=== PATIENT | female | born 1950 | race Caucasian/White ===

== ENCOUNTER → 2016-07-14 | Outpatient (CLI) | payer MEDICARE ==
[2016-07-14 13:52] LABS: ALBUMIN 3.8 GM/DL (3.2-5.2); ALBUMIN/GLOBULIN RATIO 1.23 (1.00-1.93); BILIRUBIN,TOTAL 0.5 MG/DL (0.2-1.0); CALCIUM LEVEL 9.1 MG/DL (8.8-10.2); GLOMERULAR FILTRATION RATE 58.9 (>45); POTASSIUM SERUM 4.5 MEQ/L (3.5-5.1); TOTAL PROTEIN 6.9 GM/DL (6.4-8.2)
== END ==
LOC: M WUC 10:13
PROVIDERS: ATTEND Nurse Practitioner Adult Health
DX: E55.9 Vitamin D deficiency, unspecified (principal); E78.5 Hyperlipidemia, unspecified; R73.02 Impaired glucose tolerance (oral)

== ENCOUNTER → 2016-07-15 | Outpatient (CLI) | payer MEDICARE ==
--- NOTE | 2016-07-15 12:12 | REPMRS ---
Patient History The patient states she had a clinical breast exam in 03/2017. Patient is postmenopausal. No known family history of cancer. Benign stereotatic breast biopsy of the right breast, 2009. Taking estrogen for 3 years. Digital Woman Screen Mammo: July 15, 2016 - Exam #: [id number] Bilateral CC and MLO view(s) were taken. Technologist: Ebony Mata, Technologist Prior study comparison: June 06, 2015, digital woman screen mammo performed at [facility]. June 01, 2014, digital woman screen mammo performed at [facility]. FINDINGS: There are scattered fibroglandular densities. There has been no change in the appearance of the mammogram from the prior studies. There is a mild amount of residual fibroglandular tissue which is fairly symmetric. There is no interval development of dominant mass, architectural distortion, or clustered microcalcification suggestive of malignancy. ASSESSMENT: BI-RADS/ACR category 1 mammogram. Negative. Recommendation Routine screening mammogram in 1 year (for women over age 40). This mammogram was interpreted with the aid of an FDA-approved computer-aided dectection system. Electronically Signed By: Usman Lowry MD 07/15/16 [id number]
== END ==
LOC: M WHC 11:32
PROVIDERS: ATTEND Nurse Practitioner Adult Health
DX: Z12.31 Encounter for screening mammogram for malignant neoplasm of breast (principal)

== ENCOUNTER → 2016-10-16 | Outpatient (CLI) | payer MEDICARE ==
[2016-10-16 11:43] LABS: MEAN CORPUSCULAR HGB CONC 33.8 g/dl (32.0-36.5); MEAN CORPUSCULAR VOLUME 82.7 fl (80.0-96.0); RED CELL DISTRIBUTION WIDTH 13.8 % (11.5-14.5); WHITE BLOOD COUNT 5.3 K/mm3 (4.0-10.0)
== END ==
LOC: M WUC 09:43
PROVIDERS: ATTEND Nurse Practitioner Adult Health
DX: R73.01 Impaired fasting glucose (principal); R53.83 Other fatigue

== ENCOUNTER → 2017-03-16 | Outpatient (CLI) | payer MEDICARE ==
[2017-03-16 18:58] LABS: MEAN CORPUSCULAR HEMOGLOBIN 25.3 pg (27.0-33.0); MEAN CORPUSCULAR HGB CONC 31.3 g/dl (32.0-36.5); MEAN CORPUSCULAR VOLUME 80.7 fl (80.0-96.0); PLATELET COUNT, AUTOMATED 300 10^3/uL (150-450); RED CELL DISTRIBUTION WIDTH 15.5 % (11.5-14.5); WHITE BLOOD COUNT 6.3 10^3/uL (4.0-10.0)
[2017-03-16 20:29] LABS: ALBUMIN 3.8 GM/DL (3.2-5.2); ALBUMIN/GLOBULIN RATIO 1.23 (1.00-1.93); BILIRUBIN,TOTAL 0.3 MG/DL (0.2-1.0); CALCIUM LEVEL 9.4 MG/DL (8.8-10.2); GLOMERULAR FILTRATION RATE 58.7 (>45); POTASSIUM SERUM 4.7 MEQ/L (3.5-5.1); TOTAL PROTEIN 6.9 GM/DL (6.4-8.2)
== END ==
LOC: M WUC 12:49
PROVIDERS: ATTEND Internal Medicine Gastroenterology
DX: R74.8 Abnormal levels of other serum enzymes (principal); R10.13 Epigastric pain; K75.81 Nonalcoholic steatohepatitis (NASH); Z12.11 Encounter for screening for malignant neoplasm of colon; Z79.899 Other long term (current) drug therapy

== ENCOUNTER → 2017-03-25 | Outpatient (CLI) | payer MEDICARE ==
[2017-03-25 17:16] LABS: FREE T4 0.98 NG/DL (0.76-1.46); URIC ACID 6.1 MG/DL (2.6-6.0)
== END ==
LOC: M WUC 14:37
PROVIDERS: ATTEND Nurse Practitioner Adult Health
DX: M25.549 Pain in joints of unspecified hand (principal); R53.83 Other fatigue; M79.89 Other specified soft tissue disorders

== ENCOUNTER → 2017-07-27 | Outpatient (CLI) | payer MEDICARE | LOC: M WUC 13:54 | DX: M21.941 Unspecified acquired deformity of hand, right hand (principal); M21.942 Unspecified acquired deformity of hand, left hand | CPT/HCPCS: 73130 ==

== ENCOUNTER → 2017-10-20 | Outpatient (CLI) | payer MEDICARE ==
[2017-10-20 12:38] LABS: ALBUMIN/GLOBULIN RATIO 1.25 (1.00-1.93); ALKALINE PHOSPHATASE 151 U/L (45-117); ALT/SGPT 30 U/L (12-78); ANION GAP 6 MEQ/L (8-16); AST/SGOT 17 U/L (7-37); BILIRUBIN,TOTAL 0.4 MG/DL (0.2-1.0); BLOOD UREA NITROGEN 12 MG/DL (7-18); CALCIUM LEVEL 9.1 MG/DL (8.8-10.2); CARBON DIOXIDE LEVEL 30 MEQ/L (21-32); CHLORIDE LEVEL 105 MEQ/L (98-107); CREATININE FOR GFR 0.96 MG/DL (0.55-1.30); GLOMERULAR FILTRATION RATE > 60.0 (>45); GLUCOSE, FASTING 105 MG/DL (70-100); POTASSIUM SERUM 4.9 MEQ/L (3.5-5.1); SODIUM LEVEL 141 MEQ/L (136-145); TOTAL PROTEIN 7.2 GM/DL (6.4-8.2)
[2017-10-20 12:49] LABS: MALB URINE SIEMENS 5.1 MG/L; MAU/CREAT RATIO 4.1 MCG/MG (0.0-30.0)
[2017-10-20 12:58] LABS: ESTIMATED AVERAGE GLUCOSE 148 MG/DL (60-110); HEMOGLOBIN A1c 6.8 %
== END ==
LOC: M WUC 10:26
DX: K75.81 Nonalcoholic steatohepatitis (NASH) (principal); E11.9 Type 2 diabetes mellitus without complications
CPT/HCPCS: 80053

== ENCOUNTER → 2017-10-21 | Outpatient (CLI) | payer MEDICARE | LOC: M WHC 13:01 | DX: Z12.31 Encounter for screening mammogram for malignant neoplasm of breast (principal) | CPT/HCPCS: 77067 ==

== ENCOUNTER → 2018-06-07 | Outpatient (CLI) | payer MEDICARE ==
[2018-06-07 13:55] LABS: ALBUMIN 3.8 GM/DL (3.2-5.2); BILIRUBIN,TOTAL 0.4 MG/DL (0.2-1.0); CALCIUM LEVEL 9.2 MG/DL (8.8-10.2); CHOLESTEROL RISK RATIO 4.078 (<5); CREATININE FOR GFR 1.09 MG/DL (0.55-1.30); POTASSIUM SERUM 5.1 MEQ/L (3.5-5.1); TOTAL PROTEIN 6.9 GM/DL (6.4-8.2)
[2018-06-07 14:03] LABS: TOTAL 25(OH) VITAMIN D 63.9 NG/ML (30.0-100.0)
[2018-06-07 14:30] LABS: HEMOGLOBIN A1c 7.3 %
== END ==
LOC: M WUC 10:09
PROVIDERS: ATTEND Nurse Practitioner Adult Health
DX: R53.83 Other fatigue (principal); E78.49 Other hyperlipidemia; E11.9 Type 2 diabetes mellitus without complications; E55.9 Vitamin D deficiency, unspecified

== ENCOUNTER 2018-08-01 02:36 | Emergency (ER) | payer MEDICARE ==
[~2018-08-01] VITALS: Ht 162.6 cm; Wt 74.1 kg
[2018-08-01] MEDS ORDERED: METF500T13 PO (02:45)
[2018-08-01] MEDS ORDERED: MONT10TA2 (02:45)
[2018-08-01] MEDS ORDERED: ATOR1TAB21 (02:45)
[2018-08-01] MEDS ORDERED: PANT40TA3 (02:45)
[2018-08-01 03:17] LABS: BASO # 0.1 10^3/uL (0.0-0.2); BASO % 0.7 % (0.0-1.0); EOS # 0.1 10^3/uL (0.0-0.50); HEMATOCRIT 34.3 % (36.0-47.0); LYMPH # 1.4 10^3/uL (1.5-4.5); LYMPH % 20.3 % (24.0-44.0); MEAN CORPUSCULAR HEMOGLOBIN 24.4 pg (27.0-33.0); MEAN CORPUSCULAR HGB CONC 32.1 g/dl (32.0-36.5); MEAN CORPUSCULAR VOLUME 76.1 fl (80.0-96.0); MONO # 0.7 10^3/uL (0.0-0.8); MONO % 10.6 % (0.0-5.0); NEUTROPHILS # 4.6 10^3/uL (1.8-7.7); NEUTROPHILS % 66.3 % (36.0-66.0); PLATELET COUNT, AUTOMATED 253 10^3/uL (150-450); RED BLOOD COUNT 4.51 10^6/uL (4.00-5.40)
[2018-08-01 03:41] LABS: ALBUMIN 3.8 GM/DL (3.2-5.2); ALT/SGPT 36 U/L (12-78); BILIRUBIN,DIRECT 0.2 MG/DL (0.0-0.2); BILIRUBIN,TOTAL 0.5 MG/DL (0.2-1.0); BLOOD UREA NITROGEN 16 MG/DL (7-18); CALCIUM LEVEL 8.6 MG/DL (8.8-10.2); CARBON DIOXIDE LEVEL 26 MEQ/L (21-32); CHLORIDE LEVEL 106 MEQ/L (98-107); CREATININE FOR GFR 0.95 MG/DL (0.55-1.30); GLOMERULAR FILTRATION RATE > 60.0 (>45); GLUCOSE, FASTING 119 MG/DL (70-100); LIPASE 88 U/L (73-393); POTASSIUM SERUM 3.7 MEQ/L (3.5-5.1); SODIUM LEVEL 141 MEQ/L (136-145); TOTAL PROTEIN 6.9 GM/DL (6.4-8.2)
[2018-08-01 04:06] LABS: CPK CREATINE PHOSPHOKINASE 44 U/L (26-192); TROPONIN I < 0.02 NG/ML (< 0.10)
[2018-08-01] MEDS ORDERED: ISOVUE-370 76% 100ML VIAL (Q9967) As Ordered ONE (04:27)
[2018-08-01] MEDS ORDERED: PANTOPRAZOLE 40MG INJ (PROTONIX) (C9113) IV ONE (04:30)
[2018-08-01] MEDS ORDERED: GI COCKTAIL 50ML BTL(HYOSCYAMINE/MAALOX/LIDOCAINE VISCOUS)(1:3:1) PO ONE (04:30)
[2018-08-01] MEDS ORDERED: NS 1,000 ML IV ONE (04:30)
[2018-08-01] MEDS ORDERED: SUCRALFATE 1 GM TAB PO ONE (04:30)
--- NOTE | 2018-08-01 05:43 | ECGEPIP ---
Stationary ECG Study [facility] - ED Test Date: 2018-08-01 Pat Name: DELFINO FOURNIER Department: Room: - Gender: F [employer]: : [id number] Requested By: TARIQ AU Order Number: [id number] Reading MD: Chico Epstein Measurements Intervals [place] Rate: 83 P: 60 TX: 173 QRS: 66 QRSD: 90 T: 57 QT: 379 QTc: 448 Interpretive Statements SINUS RHYTHM LOW QRS VOLTAGE IN PRECORDIAL LEADS NO PRIORS FOR COMPARISON Electronically Signed On 08-01-2018 5:42:37 EDT by Chico Epstein
--- NOTE | 2018-08-01 05:49 | REPVR ---
EXAM: CT Angiography Chest With Contrast EXAM DATE/TIME: 08/01/2018 4:42 AM CLINICAL HISTORY: 67 years old, female; Pain; Chest pain TECHNIQUE: Imaging protocol: Axial computed tomographic angiography images of the chest with intravenous contrast using CT angiography protocol. Coronal and sagittal reformatted images were created and reviewed. 3D rendering: MIP reconstructed images were created and reviewed. Radiation optimization: All CT scans at this facility use at least one of these dose optimization techniques: automated exposure control; mA and/or kV adjustment per patient size (includes targeted exams where dose is matched to clinical indication); or iterative reconstruction. Contrast material: iso 370 Contrast volume: 100 ml Contrast route: iv COMPARISON: CR Chest, 2 view PA, Lat 08/01/2018 3:55 AM FINDINGS: Pulmonary arteries: Normal. No pulmonary emboli. Aorta: Normal. No aortic aneurysm. No aortic dissection. Thyroid: There is a 9 mm left lower thyroid pole hypodense nodule (axial image 26). If Lungs: There is bilateral posterior dependent lung atelectasis. There is no focal lung consolidation or mass. There is no pleural effusion or pneumothorax. Pleural space: See Lungs Finding. Heart: Normal. No cardiomegaly. No pericardial effusion. Mediastinum: There is a 2.7 x 1.6 x 1.7 cm rounded soft tissue lesion in the anterior mediastinum (axial image 63 and sagittal image 60). Lymph nodes: Unremarkable. No enlarged lymph nodes. Bones/joints: Unremarkable. No acute fracture. Soft tissues: Unremarkable. IMPRESSION: 1. No CT evidence of pulmonary embolism or right heart strain. 2. No CT evidence of thoracic aortic aneurysm, dissection, ulcerative plaque rupture. 3. 2.7 x 1.6 x 1.7 cm soft tissue rounded density in the anterior mediastinum. The differential diagnoses include thymoma and lymphoma. No intralesional calcifications or fat seen to suggest teratoma. This lesion is separate from the thyroid gland. 4. 9 mm left lower thyroid pole hypodense nodule. No follow-up is recommended. Please refer to CT of the abdomen and pelvis performed at the same time for detailed findings in the upper abdomen. COMMENT: Consistent with the [employer]'s Incidental Findings Committee Report (J Am Octavio Radiol 2015): Unless the patient has clinical risk factors for thyroid cancer or has suspicious findings characterized in this report, for patients under 35 years old any thyroid nodule less than 1.0 cm, and for patients at least 35 years old any thyroid nodule less than 1.5 cm is highly likely to be benign and does not require follow-up imaging or biopsy. Patients with limited life expectancy and/or comorbidities do not require follow up imaging or biopsy for nodules of any size. Electronically signed by: Nicholas Yanes On 08/01/2018 05:48:49 AM
--- NOTE | 2018-08-01 05:56 | REPVR ---
EXAM: CT Abdomen and Pelvis With Contrast EXAM DATE/TIME: 08/01/2018 4:42 AM CLINICAL HISTORY: 67 years old, female; Pain; Abdominal pain TECHNIQUE: Imaging protocol: Axial computed tomography images of the abdomen and pelvis with intravenous contrast. Coronal and sagittal reformatted images were created and reviewed. Radiation optimization: All CT scans at this facility use at least one of these dose optimization techniques: automated exposure control; mA and/or kV adjustment per patient size (includes targeted exams where dose is matched to clinical indication); or iterative reconstruction. Contrast material: iso 370 Contrast volume: 100 ml Contrast route: iv COMPARISON: CT ABD W/O FOLL BY WITH CONTRA 02/01/2014 1:53 PM FINDINGS: Lower thorax: No acute findings. ABDOMEN: Liver: The liver is heterogeneous and hypoattenuated. There is a 4.7 x 3.2 cm right hepatic lobe subcapsular hypodense lesion with peripheral nodular enhancement. Gallbladder and bile ducts: The CBD is dilated measuring approximately 9-10 mm with distal tapering. There is no intrahepatic biliary duct dilatation. Pancreas: Normal. No ductal dilation. Spleen: Evaluation of the spleen is limited due to heterogeneous phase of enhancement. Adrenals: Normal. No mass. Kidneys and ureters: Normal. No hydronephrosis. Stomach and bowel: There is sigmoid colon diverticulosis. There is suggestion of mild colonic wall thickening particularly the descending and sigmoid colon. Appendix: No evidence of appendicitis. PELVIS: Bladder: Unremarkable as visualized. Reproductive: The patient status post hysterectomy. There is no adnexal mass there is ABDOMEN and PELVIS: Intraperitoneal space: Normal. No free air. No significant fluid collection. Bones/joints: There is L4-L5 facet arthrosis with grade 1 anterolisthesis of L4 on L5. Soft tissues: Unremarkable. Vasculature: Normal. No abdominal aortic aneurysm. Lymph nodes: There is apparent thickening of small bowel folds with hyperemia coupled with hazy density in shotty mesenteric lymph nodes. IMPRESSION: 1. Apparent thickening of small bowel folds with hyperemia associated with hazy mesentery and shotty mesenteric lymph nodes suggestive of enteritis, infectious or inflammatory. 2. Sigmoid colon diverticulosis. 3. Suggestion of mild colonic wall thickening particularly descending and sigmoid colon suggestive of mild form of colitis. No significant pericolonic stranding seen. 4. Dilated CBD at 9-10 mm with distal tapering and no intrahepatic biliary ductal dilatation. This could be a choledochal type 1 cyst however underlying distal CBD process cannot be excluded. Correlate with symptoms, LFTs and bilirubin level. Indicated MRCP may be obtained for further evaluation. 5. Fatty infiltration of the liver. 6. 4.7 x 3.2 cm right hepatic lobe subcapsular mass with imaging characteristics suggestive of hemangioma, seen on 02/01/2014 Electronically signed by: Nicholas Yanes On 08/01/2018 05:56:08 AM
[2018-08-01 06:15] VITALS: BP 131/73
[2018-08-01] MEDS ORDERED: CARA1TAB6 PO (06:21)
--- NOTE | 2018-08-01 07:14 | REP ---
A PA and lateral chest: Comparison is 03/21/2012. The lung ortiz are clear. The cardiac size is normal. The gagandeep, mediastinum, and skeletal structures are unremarkable. Impression: Negative PA and lateral chest. There is no interval change. Electronically Signed by Usman Fabian MD 08/01/2018 07:06 A
--- NOTE | 2018-08-02 12:50 | ED PDOC ---
Post-Departure Follow-Up no pcp listed in [facility]. find out who pcp is and fax CT abd/p to pcp. Gil Albarado MD Aug 02, 2018 12:50
--- NOTE | 2018-08-02 12:51 | ED PDOC ---
Post-Departure Follow-Up certiied letter sent for both CTA chest and CT abd/p . find out who pcp is and e nsure reports faxed there. Gil Albarado MD Aug 02, 2018 12:51
== END 2018-08-01 06:30 | disposition home or self-care (01) ==
LOC: M ED 02:36
DX: K29.90 Gastroduodenitis, unspecified, without bleeding (principal); D15.0 Benign neoplasm of thymus; R11.0 Nausea; K22.70 Barrett's esophagus without dysplasia; K21.9 Gastro-esophageal reflux disease without esophagitis; E78.5 Hyperlipidemia, unspecified; E11.9 Type 2 diabetes mellitus without complications; Z88.0 Allergy status to penicillin; Z79.899 Other long term (current) drug therapy
CPT/HCPCS: 71046; 71275; 74177; 80048; 80076; 82550; 82553; 83690; 84484; 85025; 93005; 99284; Q9967

== ENCOUNTER → 2018-08-05 | Outpatient (CLI) | payer MEDICARE ==
[~2018-08-05] MED LIST: ATOR1TAB21; CARA1TAB6 PO; METF500T13 PO; MONT10TA2; PANT40TA3
[2018-08-05 18:39] LABS: FREE T4 1.01 NG/DL (0.76-1.46); PERCENT SATURATION 5.4 % (13.2-45.0); THYROID STIMULATING HORMONE 2.77 uIU/ML (0.358-3.740)
[2018-08-05 18:41] LABS: FOLATE 19.5 NG/ML (>5.4)
== END ==
LOC: M WUC 14:09
PROVIDERS: ATTEND Nurse Practitioner Adult Health
DX: D50.9 Iron deficiency anemia, unspecified (principal)

== ENCOUNTER → 2018-08-08 | Outpatient (CLI) | payer MEDICARE ==
--- NOTE | 2018-08-08 10:56 | REP ---
RIGHT UPPER QUADRANT SONOGRAPHY: HISTORY: Abdomen pain and bloating. Comparison CT study August 01, 2018. FINDINGS: Scanning through right upper quadrant of the abdomen demonstrates a normal sized thin-walled gallbladder containing some sludge but no evidence of stone or polyp. Common bile duct is somewhat prominent measuring up to 0.8 cm. No intrahepatic ductal dilation is seen. There is moderate diffuse fatty infiltration of the liver. There is a hypoechoic area in the right lobe of the liver compatible with a hemangioma visible by CT. No other focal liver lesion is appreciated. Limited views of the pancreas show no abnormality. There is no evidence of ascites or right renal abnormality. The right kidney measures 11.4 x 5.3 x 5.1 cm. IMPRESSION: Fatty infiltration of the liver. 4.5 x 5.5 x 2.9 cm hypoechoic area in the right lobe of the liver corresponding to the hemangioma seen on CT. This is unchanged since 2014 imaging. A mildly prominent CBD. This is also unchanged from comparison CT study done in January 2014. Small amount of sludge is noted in the gallbladder today. Electronically Signed by Neo Bond MD 08/08/2018 11:02 A
== END ==
LOC: M RAD 06:15
PROVIDERS: ATTEND Nurse Practitioner Adult Health
DX: R10.9 Unspecified abdominal pain (principal)

== ENCOUNTER → 2018-08-23 | Outpatient (CLI) | payer MEDICARE ==
[2018-08-23 16:52] LABS: BASO # 0.1 10^3/uL (0.0-0.2); BASO % 1.3 % (0.0-1.0); EOS # 0.2 10^3/uL (0.0-0.50); EOS % 3.5 % (0.0-3.0); HEMOGLOBIN 10.8 g/dl (12.0-15.5); LYMPH # 1.8 10^3/uL (1.5-4.5); LYMPH % 29.2 % (24.0-44.0); MEAN CORPUSCULAR HEMOGLOBIN 23.1 pg (27.0-33.0); MEAN CORPUSCULAR VOLUME 77.1 fl (80.0-96.0); MONO # 0.8 10^3/uL (0.0-0.8); MONO % 12.6 % (0.0-5.0); NEUTROPHILS # 3.3 10^3/uL (1.8-7.7); NEUTROPHILS % 53.1 % (36.0-66.0); PLATELET COUNT, AUTOMATED 306 10^3/uL (150-450); RED BLOOD COUNT 4.67 10^6/uL (4.00-5.40); WHITE BLOOD COUNT 6.3 10^3/uL (4.0-10.0)
[2018-08-23 17:00] LABS: FERRITIN 5 NG/ML (8-252); IRON (FE) 23 UG/DL (50-170)
== END ==
LOC: M WUC 14:51
PROVIDERS: ATTEND Nurse Practitioner Adult Health
DX: D50.9 Iron deficiency anemia, unspecified (principal)

== ENCOUNTER → 2018-09-15 | Outpatient (CLI) | payer MEDICARE ==
[2018-09-15 13:26] LABS: HEMATOCRIT 35.5 % (36.0-47.0); HEMOGLOBIN 10.5 g/dl (12.0-15.5); MEAN CORPUSCULAR HGB CONC 29.6 g/dl (32.0-36.5); MEAN CORPUSCULAR VOLUME 77.9 fl (80.0-96.0); PLATELET COUNT, AUTOMATED 277 10^3/uL (150-450); RED BLOOD COUNT 4.56 10^6/uL (4.00-5.40); WHITE BLOOD COUNT 5.2 10^3/uL (4.0-10.0)
[2018-09-15 13:48] LABS: ALBUMIN 3.8 GM/DL (3.2-5.2); BILIRUBIN,DIRECT 0.1 MG/DL (0.0-0.2); BILIRUBIN,TOTAL 0.4 MG/DL (0.2-1.0); CALCIUM LEVEL 9.1 MG/DL (8.8-10.2); CREATININE FOR GFR 1.03 MG/DL (0.55-1.30); GLOMERULAR FILTRATION RATE 56.4 (>39); TOTAL PROTEIN 6.7 GM/DL (6.4-8.2)
[2018-09-15 13:53] LABS: ERYTHROCYTE SEDIMENTATION RATE 19 mm/hr (0-30)
== END ==
LOC: M WUC 10:37
PROVIDERS: ATTEND Internal Medicine Gastroenterology
DX: K81.1 Chronic cholecystitis (principal); R94.5 Abnormal results of liver function studies; D50.9 Iron deficiency anemia, unspecified; R74.8 Abnormal levels of other serum enzymes; K83.1 Obstruction of bile duct

== ENCOUNTER → 2018-11-02 | Outpatient (REF) | payer MEDICARE ==
[2018-11-02 15:56] LABS: HEMOGLOBIN 11.2 g/dl (12.0-15.5); MEAN CORPUSCULAR HEMOGLOBIN 23.2 pg (27.0-33.0); MEAN CORPUSCULAR HGB CONC 30.3 g/dl (32.0-36.5); MEAN CORPUSCULAR VOLUME 76.6 fl (80.0-96.0); PLATELET COUNT, AUTOMATED 280 10^3/uL (150-450); RED BLOOD COUNT 4.83 10^6/uL (4.00-5.40); WHITE BLOOD COUNT 7.5 10^3/uL (4.0-10.0)
== END ==
LOC: M SFHCPLAZ 14:28
PROVIDERS: ATTEND Internal Medicine
DX: R06.09 Other forms of dyspnea (principal)
CPT/HCPCS: 36415; 85027; G0463

== ENCOUNTER → 2018-11-09 | Outpatient (CLI) | payer MEDICARE | LOC: M RAD 12:49 | PROVIDERS: ATTEND Internal Medicine | DX: Z12.31 Encounter for screening mammogram for malignant neoplasm of breast (principal) ==

== ENCOUNTER → 2018-11-22 | Outpatient (CLI) | payer MEDICARE ==
--- NOTE | 2018-11-22 11:43 | REP ---
MRCP EXAMINATION WITHOUT CONTRAST: HISTORY: Dilated common bile duct. TECHNIQUE: MRCP acquisition is acquired and maximum intensity projection images are generated and viewed rotationally. Comparison CT study is from July 28, 2018. Comparison sonography August 08, 2018. Comparison MRI study February 09, 2014. There is also a CT study from February 01, 2014. FINDINGS: The previously noted, fairly large right hepatic hemangioma is again visible, unchanged from multiple prior studies. This measures 5 cm in greatest craniocaudal span. There is a second left lobe hemangioma 1.6 cm in greatest diameter. No other focal liver lesion is appreciated. The spleen is at the upper range of normal in size and homogeneous. No adrenal or pancreatic abnormality is observed. The common bile duct remains slightly prominent, unchanged from comparison MRCP examination measuring 8 mm in greatest diameter. There is no evidence of focal stricture, choledocholithiasis, or mass. Pancreatic duct is unremarkable. There is no filling defect in the lumen of the visualized gallbladder. IMPRESSION: Mildly prominent but stable common bile duct, 8 mm. Stable hepatic hemangiomas. Electronically Signed by Neo Bond MD 11/22/2018 02:23 P
== END ==
LOC: M RAD 09:09
PROVIDERS: ATTEND Internal Medicine Gastroenterology
DX: K83.8 Other specified diseases of biliary tract (principal)

== ENCOUNTER → 2018-11-30 | Outpatient (CLI) | payer MEDICARE ==
--- NOTE | 2018-11-30 10:17 | REP ---
CHEST, TWO VIEWS: HISTORY: Mediastinal mass. COMPARISON: 08/01/2018. Linear densities are present in the left lower lobe consistent with atelectasis. The right lung is clear. The heart is normal in size. The pulmonary vasculature is normal in appearance. The bony structure is intact. IMPRESSION: Left lower lobe atelectasis. Electronically Signed by Aamir Carmona MD 11/30/2018 10:20 A
== END ==
LOC: M RAD 07:47 → M LAB 07:47
PROVIDERS: ATTEND Nurse Practitioner Adult Health
DX: J98.11 Atelectasis (principal); J98.59 Other diseases of mediastinum, not elsewhere classified

== ENCOUNTER → 2018-11-30 | Outpatient (CLI) | payer MEDICARE ==
--- NOTE | 2018-11-30 09:33 | REPMRS ---
Patient History The patient states she had a clinical breast exam in 2018. Patient is postmenopausal. No known family history of cancer. Benign stereotatic breast biopsy of the right breast, 2009. Took estrogen for 20 years. Patient had lost 10 pounds due to recent chest surgery. Mass was benign. 3D TOMOSYNTHESIS WAS PERFORMED. [facility] lifetime risk for breast cancer is 3.5%. Digital Mammo Screening Bilat: November 30, 2018 - Exam #: [id number] Bilateral CC and MLO view(s) were taken. Technologist: Claire Salazar, Technologist Prior study comparison: October 21, 2017, bilateral digital woman screen mammo, performed at [facility]. July 15, 2016, digital woman screen mammo, performed at [facility]. FINDINGS: The breast tissue is heterogeneously dense. This may lower the sensitivity of mammography. There has been no change in the appearance of the mammogram from the prior studies. There is a moderate amount of residual fibroglandular tissue which is fairly symmetric. There is no interval development of dominant mass, areas of architectural distortion, or clustered microcalcification typical of malignancy. Assessment: BI-RADS/ACR category 1 mammogram. Negative Mammogram. Recommendation Routine screening mammogram in 1 year (for women over age 40). This mammogram was interpreted with the aid of an FDA-approved computer-aided dectection system. Electronically Signed By: Usman Lowry MD 11/30/18 0932
== END ==
LOC: M RAD 07:52
PROVIDERS: ATTEND Internal Medicine
DX: Z12.31 Encounter for screening mammogram for malignant neoplasm of breast (principal); Z78.0 Asymptomatic menopausal state; Z86.018 Personal history of other benign neoplasm; Z92.23 Personal history of estrogen therapy; J98.11 Atelectasis; J98.59 Other diseases of mediastinum, not elsewhere classified

== ENCOUNTER → 2018-12-01 | Outpatient (CLI) | payer MEDICARE ==
[2018-12-01 14:54] LABS: MAGNESIUM LEVEL 2.3 MG/DL (1.8-2.4)
[2018-12-01 16:35] LABS: % LABILE ALKALINE PHOSPHATASE 80.6 %
== END ==
LOC: M WUC 09:16
PROVIDERS: ATTEND Internal Medicine Gastroenterology
DX: R10.13 Epigastric pain (principal); R50.9 Fever, unspecified; K44.9 Diaphragmatic hernia without obstruction or gangrene; R74.8 Abnormal levels of other serum enzymes; R94.5 Abnormal results of liver function studies; K75.81 Nonalcoholic steatohepatitis (NASH)

== ENCOUNTER → 2018-12-01 | Outpatient (CLI) | payer MEDICARE ==
[2018-12-01 14:54] LABS: BASO # 0.1 10^3/uL (0.0-0.2); BASO % 1.3 % (0.0-1.0); EOS # 0.2 10^3/uL (0.0-0.50); EOS % 3.1 % (0.0-3.0); HEMATOCRIT 41.2 % (36.0-47.0); HEMOGLOBIN 12.9 g/dl (12.0-15.5); LYMPH # 1.3 10^3/uL (1.5-4.5); LYMPH % 23.7 % (24.0-44.0); MEAN CORPUSCULAR HGB CONC 31.3 g/dl (32.0-36.5); MEAN CORPUSCULAR VOLUME 79.8 fl (80.0-96.0); MONO # 0.6 10^3/uL (0.0-0.8); MONO % 9.9 % (0.0-5.0); NEUTROPHILS # 3.4 10^3/uL (1.8-7.7); NEUTROPHILS % 61.6 % (36.0-66.0); PLATELET COUNT, AUTOMATED 255 10^3/uL (150-450); RED BLOOD COUNT 5.16 10^6/uL (4.00-5.40); WHITE BLOOD COUNT 5.6 10^3/uL (4.0-10.0)
[2018-12-01 15:04] LABS: ALBUMIN 3.8 GM/DL (3.2-5.2); BILIRUBIN,TOTAL 0.4 MG/DL (0.2-1.0); CALCIUM LEVEL 9.6 MG/DL (8.8-10.2); CHOLESTEROL RISK RATIO 3.404 (<5); CREATININE FOR GFR 1.01 MG/DL (0.55-1.30); GLOMERULAR FILTRATION RATE 57.7 (>39); POTASSIUM SERUM 4.5 MEQ/L (3.5-5.1); TOTAL PROTEIN 7.1 GM/DL (6.4-8.2)
[2018-12-01 15:13] LABS: MALB URINE SIEMENS 7.4 MG/L; MAU/CREAT RATIO 5.6 MCG/MG (0.0-30.0)
[2018-12-01 15:25] LABS: HEMOGLOBIN A1c 6.7 %
== END ==
LOC: M WUC 09:12
PROVIDERS: ATTEND Internal Medicine
DX: D50.9 Iron deficiency anemia, unspecified (principal); E11.9 Type 2 diabetes mellitus without complications; E78.2 Mixed hyperlipidemia; R10.13 Epigastric pain; R50.9 Fever, unspecified; K44.9 Diaphragmatic hernia without obstruction or gangrene; R74.8 Abnormal levels of other serum enzymes; R94.5 Abnormal results of liver function studies; K75.81 Nonalcoholic steatohepatitis (NASH)

== ENCOUNTER → 2019-03-31 | Outpatient (CLI) | payer MEDICARE ==
--- NOTE | 2019-03-31 13:01 | REP ---
Clinical: Dyspnea. Shortness of breath. Technique: PA and lateral. Comparison: 11/30/2018. Findings: Linear chronic fibroatelectatic changes at the left base with stable elevation to the left hemidiaphragm again noted. No acute consolidation. No effusion. No pneumothorax. Mediastinum and cardiac silhouette are normal. Impression: Chronic stable changes. No acute cardiopulmonary process. Electronically Signed by Bk Rodney MD 03/31/2019 12:52 P
--- NOTE | 2019-03-31 14:22 | REP ---
CHEST FLUOROSCOPY SNIFF TEST: Breathing motion is observed under direct fluoroscopy, with deep inspiration, expiration, and breath holds. There is appropriate adequate excursion of the right hemidiaphragm with inspiration and expiration. The left hemidiaphragm demonstrates significantly decreased motion with inspiration and expiration. It does move in an appropriate direction with inspiration and expiration, but the degree of excursion is severely diminished. There are adjacent atelectatic changes seen in the left lung base. IMPRESSION: Normal excursion of right hemidiaphragm. Significantly decreased excursion of left hemidiaphragm with inspiration and expiration. There is only very mild degree of motion of the left hemidiaphragm in an appropriate direction with inspiration and expiration. Findings raise concern for injury to the phrenic nerve. 1 minute fluoroscopy time utilized. Electronically Signed by Usman Lowry MD 03/31/2019 03:55 P
== END ==
LOC: M RAD 12:15
PROVIDERS: ATTEND Internal Medicine
DX: R06.09 Other forms of dyspnea (principal)
CPT/HCPCS: 71046; 76000; G0463

== ENCOUNTER → 2019-06-08 | Outpatient (CLI) | payer MEDICARE ==
[~2019-06-08] MED LIST changes: -MONT10TA2; +MONT10TA4
[2019-06-08 14:32] LABS: HEMOGLOBIN A1c 7.2 %
[2019-06-08 14:36] LABS: ALBUMIN 3.8 GM/DL (3.2-5.2); BILIRUBIN,TOTAL 0.3 MG/DL (0.2-1.0); CALCIUM LEVEL 9.2 MG/DL (8.8-10.2); CREATININE FOR GFR 0.99 MG/DL (0.55-1.30); POTASSIUM SERUM 5.3 MEQ/L (3.5-5.1); TOTAL PROTEIN 6.8 GM/DL (6.4-8.2)
[2019-06-08 14:52] LABS: HEMATOCRIT 42.9 % (36.0-47.0); MEAN CORPUSCULAR HGB CONC 32.6 g/dl (32.0-36.5); MEAN CORPUSCULAR VOLUME 85.8 fl (80.0-96.0); PLATELET COUNT, AUTOMATED 258 10^3/uL (150-450); WHITE BLOOD COUNT 5.2 10^3/uL (4.0-10.0)
== END ==
LOC: M WUC 10:31
PROVIDERS: ATTEND Internal Medicine
DX: E11.9 Type 2 diabetes mellitus without complications (principal); D50.9 Iron deficiency anemia, unspecified

== ENCOUNTER → 2019-10-24 | Outpatient (CLI) | payer MEDICARE | LOC: M LABSMTC 12:41 | PROVIDERS: ATTEND Pediatrics | DX: Z03.818 Encounter for observation for suspected exposure to other biological agents ruled out (principal); Z11.59 Encounter for screening for other viral diseases | CPT/HCPCS: C9803; U0002 ==

== ENCOUNTER → 2020-04-02 | Outpatient (CLI) | payer MEDICARE ==
[~2020-04-02] MED LIST changes: -MONT10TA4; +MONT5TAB2; +PANT40TA29; -PANT40TA3
[2020-04-02 12:12] LABS: HEMATOCRIT 43.6 % (36.0-47.0); HEMOGLOBIN 14.2 g/dl (12.0-15.5); MEAN CORPUSCULAR HEMOGLOBIN 28.4 pg (27.0-33.0); MEAN CORPUSCULAR HGB CONC 32.6 g/dl (32.0-36.5); MEAN CORPUSCULAR VOLUME 87.2 fl (80.0-96.0); PLATELET COUNT, AUTOMATED 241 10^3/uL (150-450); WHITE BLOOD COUNT 5.6 10^3/uL (4.0-10.0)
[2020-04-02 12:18] LABS: INR 0.99; PROTHROMBIN TIME 13.3 SECONDS (12.5-14.3)
[2020-04-02 12:31] LABS: ALBUMIN 3.7 GM/DL (3.2-5.2); BILIRUBIN,DIRECT 0.2 MG/DL (0.0-0.2); BILIRUBIN,TOTAL 0.5 MG/DL (0.2-1.0); CALCIUM LEVEL 9.2 MG/DL (8.8-10.2); CREATININE FOR GFR 1.11 MG/DL (0.55-1.30); GLOMERULAR FILTRATION RATE 51.6 (>39); POTASSIUM SERUM 4.4 MEQ/L (3.5-5.1); TOTAL PROTEIN 7.1 GM/DL (6.4-8.2)
== END ==
LOC: M WUC 08:53
PROVIDERS: ATTEND Internal Medicine Gastroenterology
DX: R19.7 Diarrhea, unspecified (principal); R10.13 Epigastric pain; R74.8 Abnormal levels of other serum enzymes; K22.70 Barrett's esophagus without dysplasia; K75.81 Nonalcoholic steatohepatitis (NASH); D50.9 Iron deficiency anemia, unspecified; E11.9 Type 2 diabetes mellitus without complications; E78.2 Mixed hyperlipidemia

== ENCOUNTER → 2020-04-02 | Outpatient (REF) | payer MEDICARE ==
[2020-04-02 12:18] LABS: HEMATOCRIT 43.1 % (36.0-47.0); HEMOGLOBIN 13.7 g/dl (12.0-15.5); MEAN CORPUSCULAR HEMOGLOBIN 27.3 pg (27.0-33.0); MEAN CORPUSCULAR HGB CONC 31.8 g/dl (32.0-36.5); MEAN CORPUSCULAR VOLUME 85.9 fl (80.0-96.0); PLATELET COUNT, AUTOMATED 239 10^3/uL (150-450); RED BLOOD COUNT 5.02 10^6/uL (4.00-5.40); WHITE BLOOD COUNT 5.8 10^3/uL (4.0-10.0)
[2020-04-02 12:31] LABS: ALBUMIN 3.8 GM/DL (3.2-5.2); BILIRUBIN,TOTAL 0.5 MG/DL (0.2-1.0); CALCIUM LEVEL 9.2 MG/DL (8.8-10.2); CHOLESTEROL RISK RATIO 3.74 (<5); CREATININE FOR GFR 1.1 MG/DL (0.55-1.30); GLOMERULAR FILTRATION RATE 52.1 (>39); POTASSIUM SERUM 4.2 MEQ/L (3.5-5.1); TOTAL PROTEIN 7.1 GM/DL (6.4-8.2)
[2020-04-02 12:39] LABS: MALB URINE SIEMENS 9.5 MG/L; MAU/CREAT RATIO 5.6 MCG/MG (0.0-30.0)
[2020-04-02 12:54] LABS: HEMOGLOBIN A1c 7.5 %
== END ==
LOC: M WUC 15:34
PROVIDERS: ATTEND Internal Medicine
DX: E78.2 Mixed hyperlipidemia (principal); E11.9 Type 2 diabetes mellitus without complications; D50.9 Iron deficiency anemia, unspecified

== ENCOUNTER → 2020-05-28 | Outpatient (CLI) | payer MEDICARE ==
--- NOTE | 2020-05-28 12:41 | DEXAMM ---
INDICATION: M85.851 DISORDER OF BONE DENSITY AND STRUCTURE,RT THIGH. COMPARISON: Comparison studies are from June 01, 2014, September 16, 2012, and July 11, 2010.. TECHNIQUE: Bone density was measured using dual-energy x-ray absorptionmetry (DEXA). FINDINGS: AP SPINE L1-L4 BMD 1.259 g/cm2 Young Adult T-Score 0.5 Age Matched Z-Score 2.2. LT FEMUR, TOTAL BMD 0.912 g/cm2 Young Adult T-Score -0.8 Age Matched Z-Score 0.8. LT NECK BMD 0.827 g/cm2 Young Adult T-Score -1.5 Age Matched Z-Score 0.2. RT FEMUR, TOTAL BMD 0.887 g/cm2 Young Adult T-Score -1.0 Age Matched Z-Score 0.6. RT NECK BMD 0.768 g/cm2 Young Adult T-Score -1.9 Age Matched Z-Score -0.2. IMPRESSION: There is normal bone density of the spine. There is low bone density of the left hip. There is low bone density of the right hip. The density of the spine has increased 1.6% since the initial exam on July 11, 2010. The density of the spine decreased 2.3% since most recent exam on June 01, 2014. The density of the left hip has increased 1.6% since initial exam on July 11, 2010. The density of the left hip has decreased 1.2% since most recent exam on June 01, 2014. The density of the right hip has increased 2.4% since the initial exam on July 11, 2010. The density of the right hip has not changed since the most recent exam on June 01, 2014. FOLLOW-UP: Recommendation for the next bone density exam: 2 years. <Electronically signed by Fracisco Bond > 05/28/20 1627
== END ==
LOC: M WHC 11:23
PROVIDERS: ATTEND Internal Medicine
DX: M85.851 Other specified disorders of bone density and structure, right thigh (principal)

== ENCOUNTER → 2020-07-27 | Outpatient (REF) ==
[~2020-07-27] MED LIST changes: +MONT10TA10; -MONT5TAB2
== END ==
LOC: M LABSMTC 11:08
PROVIDERS: ATTEND Pediatrics
DX: Z11.52 Encounter for screening for COVID-19 (principal)

== ENCOUNTER → 2020-10-01 | Outpatient (CLI) | payer MEDICARE ==
[2020-10-01 10:39] LABS: ALBUMIN 3.9 GM/DL (3.2-5.2); BILIRUBIN,DIRECT 0.2 MG/DL (0.0-0.2); BILIRUBIN,TOTAL 0.4 MG/DL (0.2-1.0); MAGNESIUM LEVEL 2.3 MG/DL (1.8-2.4); TOTAL 25(OH) VITAMIN D 65.4 NG/ML (30.0-100.0); TOTAL PROTEIN 7.3 GM/DL (6.4-8.2)
== END ==
LOC: M LAB 08:08
PROVIDERS: ATTEND Internal Medicine Gastroenterology
DX: K22.70 Barrett's esophagus without dysplasia (principal); K44.9 Diaphragmatic hernia without obstruction or gangrene; R19.7 Diarrhea, unspecified; K75.81 Nonalcoholic steatohepatitis (NASH); R94.5 Abnormal results of liver function studies; E55.9 Vitamin D deficiency, unspecified; E11.9 Type 2 diabetes mellitus without complications; Z79.899 Other long term (current) drug therapy

== ENCOUNTER → 2020-10-01 | Outpatient (CLI) | payer MEDICARE ==
[2020-10-01 10:40] LABS: HEMOGLOBIN A1c 6.6 %
[2020-10-01 11:53] LABS: ALBUMIN 3.8 GM/DL (3.2-5.2); ALT/SGPT 33 U/L (12-78); BILIRUBIN,TOTAL 0.6 MG/DL (0.2-1.0); BLOOD UREA NITROGEN 15 MG/DL (7-18); CALCIUM LEVEL 9.6 MG/DL (8.8-10.2); CARBON DIOXIDE LEVEL 29 MEQ/L (21-32); CHLORIDE LEVEL 105 MEQ/L (98-107); CHOLESTEROL LEVEL 131 MG/DL (<200); CHOLESTEROL RISK RATIO 2.847 (<5); CREATININE FOR GFR 0.97 MG/DL (0.55-1.30); GLOMERULAR FILTRATION RATE > 60.0 (>39); GLUCOSE, FASTING 112 MG/DL (70-100); HDL CHOLESTEROL 46 MG/DL (>40); LDL CHOLESTEROL 61 MG/DL (<100); NON-HDL-C 85 MG/DL; POTASSIUM SERUM 4.6 MEQ/L (3.5-5.1); SODIUM LEVEL 140 MEQ/L (136-145); TOTAL PROTEIN 7.2 GM/DL (6.4-8.2); TRIGLYCERIDES LEVEL 118 MG/DL (<150)
== END ==
LOC: M LAB 08:06
PROVIDERS: ATTEND Internal Medicine
DX: E11.9 Type 2 diabetes mellitus without complications (principal)

== ENCOUNTER → 2021-02-07 | Outpatient (REF) ==
[2021-02-07 12:03] LABS: RSV AMPLIFICATION NEGATIVE (NEGATIVE)
== END ==
LOC: M EMP 10:23
PROVIDERS: ATTEND Family Medicine
DX: Z20.822 Contact with and (suspected) exposure to COVID-19 (principal)

== ENCOUNTER 2021-02-10 07:35 | Outpatient (CLI) | payer MEDICARE ==
[~2021-02-10] VITALS: Ht 162.6 cm; Wt 75.0 kg
[~2021-02-10 07:35] MED LIST changes: +ALBUTEROL 90 MCG/ACT 8GM HFA INHALER INH PRN; +ALBUTEROL SULFATE 2.5 MG/0.5 ML INH NEB SOLN INH PRN; +EPINEPHrine INJ 1 MG/ML 1ML AMP IM PRN; +NS 1,000 ML IV SCH; +diphenhydrAMINE 50MG/ML VIAL (J1200) IV PRN; +methylPREDNISolone 125MG 2ML VIAL IV PRN
[2021-02-10 09:08] VITALS: BP 145/78
[2021-02-10 09:23] VITALS: BP 156/80
[2021-02-10 09:50] VITALS: BP 125/78
[2021-02-10] MEDS ORDERED: BAMLANIVIMAB 700 MG, ETESEVIMAB 1,400 MG in NS 250 ML IV ONE (10:00)
[2021-02-10 10:20] VITALS: BP 132/75
[2021-02-10 10:45] VITALS: BP 124/75
[2021-02-10 11:44] VITALS: BP 124/75
== END 2021-02-10 11:51 ==
LOC: M OPCLI4PR 07:35
PROVIDERS: ATTEND Family Medicine
DX: U07.1 COVID-19 (principal); Z88.0 Allergy status to penicillin; Z88.1 Allergy status to other antibiotic agents; Z88.8 Allergy status to other drugs, medicaments and biological substances

== ENCOUNTER → 2021-03-28 | Outpatient (CLI) | payer MEDICARE ==
[~2021-03-28] MED LIST changes: -ALBUTEROL 90 MCG/ACT 8GM HFA INHALER INH PRN; -ALBUTEROL SULFATE 2.5 MG/0.5 ML INH NEB SOLN INH PRN; -EPINEPHrine INJ 1 MG/ML 1ML AMP IM PRN; -NS 1,000 ML IV SCH; -diphenhydrAMINE 50MG/ML VIAL (J1200) IV PRN; -methylPREDNISolone 125MG 2ML VIAL IV PRN
[2021-03-28 15:51] LABS: BASO # 0.1 10^3/uL (0.0-0.2); BASO % 0.7 % (0.0-1.0); EOS # 0.3 10^3/uL (0.0-0.5); EOS % 4.5 % (0.0-3.0); HEMATOCRIT 43.5 % (36.0-47.0); HEMOGLOBIN 13.8 g/dl (12.0-15.5); LYMPH # 1.5 10^3/uL (1.5-5.0); LYMPH % 22.4 % (24.0-44.0); MEAN CORPUSCULAR HEMOGLOBIN 28.1 pg (27.0-33.0); MEAN CORPUSCULAR HGB CONC 31.7 g/dl (32.0-36.5); MEAN CORPUSCULAR VOLUME 88.6 fl (80.0-96.0); MONO # 0.9 10^3/uL (0.0-0.8); MONO % 12.7 % (2.0-8.0); NEUTROPHILS # 4.1 10^3/uL (1.5-8.5); NEUTROPHILS % 59.6 % (36.0-66.0); PLATELET COUNT, AUTOMATED 252 10^3/uL (150-450); RED BLOOD COUNT 4.91 10^6/uL (4.00-5.40); WHITE BLOOD COUNT 6.8 10^3/uL (4.0-10.0)
[2021-03-28 16:09] LABS: HEMOGLOBIN A1c 7.1 %
[2021-03-28 16:35] LABS: ALBUMIN 3.8 GM/DL (3.2-5.2); BILIRUBIN,TOTAL 0.6 MG/DL (0.2-1.0); CALCIUM LEVEL 9.2 MG/DL (8.8-10.2); CREATININE FOR GFR 1.06 MG/DL (0.55-1.30); GLOMERULAR FILTRATION RATE 54.2 (>39); POTASSIUM SERUM 4.9 MEQ/L (3.5-5.1); THYROID STIMULATING HORMONE 1.84 uIU/ML (0.358-3.740); TOTAL PROTEIN 7.1 GM/DL (6.4-8.2)
== END ==
LOC: M WUC 10:59
PROVIDERS: ATTEND Internal Medicine
DX: E11.9 Type 2 diabetes mellitus without complications (principal); K75.81 Nonalcoholic steatohepatitis (NASH); D50.9 Iron deficiency anemia, unspecified; R00.0 Tachycardia, unspecified

== ENCOUNTER → 2021-08-13 | Outpatient (REF) ==
[~2021-08-13] MED LIST changes: -MONT10TA10; +MONT10TA97
== END ==
LOC: M LABSMTC 11:23
PROVIDERS: ATTEND Family Medicine
DX: Z11.52 Encounter for screening for COVID-19 (principal)

== ENCOUNTER → 2021-08-15 | Outpatient (REF) | payer MEDICARE | LOC: M LAB REF 15:55 | PROVIDERS: ATTEND Internal Medicine Gastroenterology | DX: R19.7 Diarrhea, unspecified (principal); R15.9 Full incontinence of feces; K44.9 Diaphragmatic hernia without obstruction or gangrene; K22.70 Barrett's esophagus without dysplasia; D18.03 Hemangioma of intra-abdominal structures; R94.5 Abnormal results of liver function studies; K75.81 Nonalcoholic steatohepatitis (NASH); Z86.010 Personal history of colon polyps ==

== ENCOUNTER → 2021-09-25 | Outpatient (REF) ==
[2021-09-25 12:41] LABS: RSV AMPLIFICATION NEGATIVE (NEGATIVE)
== END ==
LOC: M EMP 07:51
PROVIDERS: ATTEND Family Medicine
DX: Z20.9 Contact with and (suspected) exposure to unspecified communicable disease (principal)

== ENCOUNTER → 2021-10-07 | Outpatient (CLI) | payer MEDICARE ==
[2021-10-07 13:06] LABS: BASO # 0.1 10^3/uL (0.0-0.2); BASO % 1.1 % (0.0-1.0); EOS # 0.4 10^3/uL (0.0-0.5); EOS % 5.1 % (0.0-3.0); HEMATOCRIT 42.5 % (36.0-47.0); HEMOGLOBIN 13.8 g/dl (12.0-15.5); LYMPH # 1.9 10^3/uL (1.5-5.0); LYMPH % 25.1 % (24.0-44.0); MEAN CORPUSCULAR HEMOGLOBIN 28.9 pg (27.0-33.0); MEAN CORPUSCULAR HGB CONC 32.5 g/dl (32.0-36.5); MEAN CORPUSCULAR VOLUME 89.1 fl (80.0-96.0); MONO # 0.8 10^3/uL (0.0-0.8); MONO % 10.1 % (2.0-8.0); NEUTROPHILS # 4.4 10^3/uL (1.5-8.5); NEUTROPHILS % 58.3 % (36.0-66.0); PLATELET COUNT, AUTOMATED 283 10^3/uL (150-450); RED BLOOD COUNT 4.77 10^6/uL (4.00-5.40); WHITE BLOOD COUNT 7.5 10^3/uL (4.0-10.0)
[2021-10-07 13:18] LABS: HEMOGLOBIN A1c 7.5 %
[2021-10-07 13:46] LABS: ALBUMIN 3.8 GM/DL (3.2-5.2); BILIRUBIN,TOTAL 0.4 MG/DL (0.2-1.0); CHOLESTEROL RISK RATIO 3.023 (<5); CREATININE FOR GFR 0.99 MG/DL (0.55-1.30); GLOMERULAR FILTRATION RATE 58.5 (>39); POTASSIUM SERUM 4.3 MEQ/L (3.5-5.1); TOTAL PROTEIN 7.1 GM/DL (6.4-8.2)
[2021-10-07 17:44] LABS: MALB URINE SIEMENS 18.9 MG/L
== END ==
LOC: M WUC 09:26
PROVIDERS: ATTEND Internal Medicine
DX: E78.2 Mixed hyperlipidemia (principal); E11.9 Type 2 diabetes mellitus without complications; D50.9 Iron deficiency anemia, unspecified

== ENCOUNTER 2021-12-23 09:11 | Observation (INO) | payer MEDICARE ==
[~2021-12-23] VITALS: Ht 162.6 cm; Wt 73.5 kg
[~2021-12-23 09:11] MED LIST changes: -MONT10TA97; +MONT10TA97 PO
[2021-12-23] MEDS ORDERED: OZEM2INJ SC (09:19)
[2021-12-23] MEDS ORDERED: NS 1,000 ML IV ONE (11:25)
[2021-12-23] MEDS ORDERED: ISOVUE-370 76% 100ML VIAL As Ordered ONE (11:56)
[2021-12-23 12:11] LABS: BASO % 0.3 % (0.0-1.0); EOS # 0.5 10^3/uL (0.0-0.5); EOS % 3.9 % (0.0-3.0); HEMATOCRIT 48.2 % (36.0-47.0); HEMOGLOBIN 15.3 g/dl (12.0-15.5); LYMPH # 1.6 10^3/uL (1.5-5.0); LYMPH % 12.7 % (24.0-44.0); MEAN CORPUSCULAR HEMOGLOBIN 27.9 pg (27.0-33.0); MEAN CORPUSCULAR HGB CONC 31.7 g/dl (32.0-36.5); MONO % 8.2 % (2.0-8.0); NEUTROPHILS # 9.1 10^3/uL (1.5-8.5); NEUTROPHILS % 74.6 % (36.0-66.0); PLATELET COUNT, AUTOMATED 280 10^3/uL (150-450); RED BLOOD COUNT 5.48 10^6/uL (4.00-5.40); WHITE BLOOD COUNT 12.2 10^3/uL (4.0-10.0)
[2021-12-23 12:29] LABS: ALBUMIN 3.8 GM/DL (3.2-5.2); BILIRUBIN,DIRECT 0.2 MG/DL (0.0-0.2); BILIRUBIN,TOTAL 0.7 MG/DL (0.2-1.0); TOTAL PROTEIN 7.7 GM/DL (6.4-8.2)
[2021-12-23] MEDS ORDERED: metroNIDAZOLE 500 MG in IV 1 EA IV ONE (15:35)
[2021-12-23] MEDS ORDERED: CIPROFLOXACIN 400 MG in IV 1 EA IV ONE (15:35)
[2021-12-23] MEDS ORDERED: ATOR1TAB19 PO (15:56)
[2021-12-23] MEDS ORDERED: PANT20TA51 PO (16:43)
[2021-12-23] MEDS ORDERED: CHOL125C6 PO (16:47)
[2021-12-23] MEDS ORDERED: ESTR62CR VG (16:47)
[2021-12-23] MEDS ORDERED: IBUP-1720 PO (16:47)
[2021-12-23] MEDS ORDERED: LORA-674 PO (16:47)
[2021-12-23] MEDS ORDERED: HOME MED LIST COMPLETE! XX SCH (16:50)
[2021-12-23] MEDS: NS 1,000 ML IV SCH (17:00)
[2021-12-23 17:19] LABS: RSV AMPLIFICATION NEGATIVE (NEGATIVE)
[2021-12-23 18:13] LABS: C REACTIVE PROTEIN QUANTITATIV 1.01 MG/DL (0.00-0.30)
[2021-12-23 18:47] LABS: ERYTHROCYTE SEDIMENTATION RATE 9 mm/hr (0-30)
[2021-12-23 19:02] LABS: CALCIUM LEVEL 8.9 MG/DL (8.8-10.2); CREATININE FOR GFR 1.12 MG/DL (0.55-1.30); GLOMERULAR FILTRATION RATE 50.8 (>39); POTASSIUM SERUM 3.7 MEQ/L (3.5-5.1)
[2021-12-23] MEDS ORDERED: ONDANSETRON 4MG 2ML VIAL IV PRN (19:30)
[2021-12-23] MEDS ORDERED: DEXTROSE 50% 50 ML SYRINGE IV PRN (19:30)
[2021-12-23] MEDS ORDERED: GLUCOSE 4GM CHEW TABLET PO PRN (19:30)
[2021-12-23] MEDS ORDERED: GLUCAGON INJ 1MG VIAL SC PRN (19:30)
[2021-12-23] MEDS ORDERED: DICYCLOMINE INJ 20MG/2ML (J0500) IM PRN (19:30)
[2021-12-23] MEDS ORDERED: MORPHINE 2 MG/ML 1ML VIAL IV PRN (19:30)
[2021-12-23] MEDS: INSULIN LISPRO (NovoLOG) PER UNIT SC SCH (20:33)
[2021-12-23 22:30] VITALS: BP 115/75
[2021-12-24] MEDS: metroNIDAZOLE 500 MG in IV 1 EA IV SCH ×2 (01:59→09:36)
[2021-12-24] MEDS ORDERED: CIPROFLOXACIN 400 MG in IV 1 EA IV SCH (05:00)
[2021-12-24] MEDS: NS 1,000 ML IV SCH (05:20)
[2021-12-24 05:23] VITALS: BP 114/60
[2021-12-24 07:11] LABS: ALBUMIN 2.9 GM/DL (3.2-5.2); ALT/SGPT 27 U/L (12-78); BILIRUBIN,TOTAL 0.7 MG/DL (0.2-1.0); BLOOD UREA NITROGEN 9 MG/DL (7-18); CALCIUM LEVEL 8.7 MG/DL (8.8-10.2); CARBON DIOXIDE LEVEL 25 MEQ/L (21-32); CHLORIDE LEVEL 109 MEQ/L (98-107); CREATININE FOR GFR 0.87 MG/DL (0.55-1.30); GLOMERULAR FILTRATION RATE > 60.0 (>39); GLUCOSE, FASTING 88 MG/DL (70-100); POTASSIUM SERUM 3.9 MEQ/L (3.5-5.1); SODIUM LEVEL 140 MEQ/L (136-145); TOTAL PROTEIN 5.7 GM/DL (6.4-8.2)
[2021-12-24] MEDS: INSULIN LISPRO (NovoLOG) PER UNIT SC SCH ×4 (07:30→21:00)
[2021-12-24 08:35] LABS: BASO % 0.6 % (0.0-1.0); EOS # 0.4 10^3/uL (0.0-0.5); EOS % 6.6 % (0.0-3.0); HEMATOCRIT 37.7 % (36.0-47.0); LYMPH # 1.6 10^3/uL (1.5-5.0); LYMPH % 23.9 % (24.0-44.0); MEAN CORPUSCULAR HEMOGLOBIN 28.3 pg (27.0-33.0); MEAN CORPUSCULAR HGB CONC 32.6 g/dl (32.0-36.5); MEAN CORPUSCULAR VOLUME 86.9 fl (80.0-96.0); MONO # 0.7 10^3/uL (0.0-0.8); MONO % 10.4 % (2.0-8.0); NEUTROPHILS # 3.8 10^3/uL (1.5-8.5); NEUTROPHILS % 58.2 % (36.0-66.0); PLATELET COUNT, AUTOMATED 204 10^3/uL (150-450); RED BLOOD COUNT 4.34 10^6/uL (4.00-5.40); WHITE BLOOD COUNT 6.5 10^3/uL (4.0-10.0)
[2021-12-24 08:53] LABS: HEMOGLOBIN 12.3 g/dl (12.0-15.5)
[2021-12-24] MEDS: LORATADINE 10 MG TAB PO SCH (09:16)
[2021-12-24] MEDS: ATORVASTATIN 10 MG TAB PO SCH (09:16)
[2021-12-24] MEDS: MONTELUKAST 10 MG TAB PO SCH (09:16)
[2021-12-24] MEDS: ENOXAPARIN 40MG/0.4ML SYRINGE (J1650 PER 10MG) SC SCH (09:19)
[2021-12-24] MEDS: PANTOPRAZOLE 20 MG TAB PO SCH (09:24)
[2021-12-24] MEDS: CIPROFLOXACIN 500MG TABLET PO SCH ×2 (13:41→18:29)
[2021-12-24] MEDS: metroNIDAZOLE (FLAGYL) 500MG TABLET PO SCH ×2 (13:44→21:05)
[2021-12-24 14:00] VITALS: BP 105/60
[2021-12-24] MEDS ORDERED: ONDANSETRON 4MG ORAL DISINTEGRATING TAB PO PRN (21:40)
[2021-12-24 22:00] VITALS: BP 110/62
[2021-12-25] MEDS: CIPROFLOXACIN 500MG TABLET PO SCH (05:46)
[2021-12-25] MEDS: metroNIDAZOLE (FLAGYL) 500MG TABLET PO SCH (05:46)
[2021-12-25 05:57] LABS: HEMATOCRIT 37.1 % (36.0-47.0); HEMOGLOBIN 12.3 g/dl (12.0-15.5); MEAN CORPUSCULAR HEMOGLOBIN 28.7 pg (27.0-33.0); MEAN CORPUSCULAR HGB CONC 33.2 g/dl (32.0-36.5); MEAN CORPUSCULAR VOLUME 86.7 fl (80.0-96.0); PLATELET COUNT, AUTOMATED 207 10^3/uL (150-450); RED BLOOD COUNT 4.28 10^6/uL (4.00-5.40)
[2021-12-25 06:00] VITALS: BP 125/76
[2021-12-25] MEDS: INSULIN LISPRO (NovoLOG) PER UNIT SC SCH (07:30)
[2021-12-25] MEDS ORDERED: METR-265 PO (08:53)
[2021-12-25] MEDS ORDERED: CIPR-249 PO (08:53)
[2021-12-25] MEDS: ENOXAPARIN 40MG/0.4ML SYRINGE (J1650 PER 10MG) SC SCH (09:00)
[2021-12-25] MEDS: LORATADINE 10 MG TAB PO SCH (09:27)
[2021-12-25] MEDS: MONTELUKAST 10 MG TAB PO SCH (09:27)
[2021-12-25] MEDS: ATORVASTATIN 10 MG TAB PO SCH (09:27)
[2021-12-25] MEDS: PANTOPRAZOLE 20 MG TAB PO SCH (09:27)
== END 2021-12-25 11:02 | disposition home or self-care (01) ==
LOC: M ED 09:11 → M ED INP 09:12 → M MSPAV 22:14
PROVIDERS: ADMIT Internal Medicine; ATTEND Internal Medicine
DX: K51.019 Ulcerative (chronic) pancolitis with unspecified complications (principal); R19.7 Diarrhea, unspecified; R11.10 Vomiting, unspecified; E11.9 Type 2 diabetes mellitus without complications; J30.2 Other seasonal allergic rhinitis; E55.9 Vitamin D deficiency, unspecified; E78.49 Other hyperlipidemia; K21.9 Gastro-esophageal reflux disease without esophagitis; Z79.899 Other long term (current) drug therapy; Z88.0 Allergy status to penicillin; Z88.8 Allergy status to other drugs, medicaments and biological substances
CPT/HCPCS: 36415; 74177; 80047; 80048; 80053; 80076; 83605; 83690; 83735; 85025; 85027; 85652; 86140; 87507; 87631; 93041; 96361; 96365; 96366; 96367; 96375; 99285; G0378; J0744; J1650; J2270; J2405; Q9967

== ENCOUNTER 2021-12-27 02:40 | Emergency (ER) | payer MEDICARE ==
[~2021-12-27] VITALS: Ht 162.6 cm; Wt 73.8 kg
[~2021-12-27 02:40] MED LIST changes: +ATOR1TAB19 PO; +CHOL125C6 PO; +CIPR-249 PO; +ESTR62CR VG; +IBUP-1720 PO; +LORA-674 PO; +METR-265 PO; +OZEM2INJ SC; +PANT20TA51 PO
[2021-12-27 03:46] LABS: BASO # 0.1 10^3/uL (0.0-0.2); EOS # 0.5 10^3/uL (0.0-0.5); EOS % 6.9 % (0.0-3.0); HEMATOCRIT 41.2 % (36.0-47.0); HEMOGLOBIN 13.8 g/dl (12.0-15.5); LYMPH # 1.5 10^3/uL (1.5-5.0); LYMPH % 21.6 % (24.0-44.0); MEAN CORPUSCULAR HEMOGLOBIN 29.1 pg (27.0-33.0); MEAN CORPUSCULAR HGB CONC 33.5 g/dl (32.0-36.5); MEAN CORPUSCULAR VOLUME 86.9 fl (80.0-96.0); MONO # 0.7 10^3/uL (0.0-0.8); MONO % 9.9 % (2.0-8.0); NEUTROPHILS # 4.2 10^3/uL (1.5-8.5); NEUTROPHILS % 60.3 % (36.0-66.0); PLATELET COUNT, AUTOMATED 261 10^3/uL (150-450); RED BLOOD COUNT 4.74 10^6/uL (4.00-5.40)
[2021-12-27 04:21] LABS: ALBUMIN 3.7 GM/DL (3.2-5.2); ALT/SGPT 104 U/L (12-78); BILIRUBIN,DIRECT < 0.1 MG/DL (0.0-0.2); BILIRUBIN,TOTAL 0.4 MG/DL (0.2-1.0); BLOOD UREA NITROGEN 14 MG/DL (7-18); CALCIUM LEVEL 9.5 MG/DL (8.8-10.2); CARBON DIOXIDE LEVEL 27 MEQ/L (21-32); CHLORIDE LEVEL 106 MEQ/L (98-107); CK-MB VALUE MASS 1.6 NG/ML (<3.6); CREATININE FOR GFR 1.04 MG/DL (0.55-1.30); GLOMERULAR FILTRATION RATE 55.3 (>39); GLUCOSE, FASTING 182 MG/DL (70-100); LIPASE 115 U/L (73-393); MB/CK RELATIVE INDEX 1.84 (< OR =4); POTASSIUM SERUM 4.2 MEQ/L (3.5-5.1); SODIUM LEVEL 138 MEQ/L (136-145); TOTAL PROTEIN 6.9 GM/DL (6.4-8.2)
[2021-12-27 08:50] VITALS: BP 133/79
[2021-12-27] MEDS ORDERED: MIRALAX *UNIT DOSE* 17GM PACKET PO ONE (09:00)
== END 2021-12-27 08:51 | disposition home or self-care (01) ==
LOC: M ED 02:40
DX: K59.00 Constipation, unspecified (principal); R74.01 Elevation of levels of liver transaminase levels; R16.0 Hepatomegaly, not elsewhere classified; E11.9 Type 2 diabetes mellitus without complications; E78.5 Hyperlipidemia, unspecified; K21.9 Gastro-esophageal reflux disease without esophagitis; K76.0 Fatty (change of) liver, not elsewhere classified; Z79.899 Other long term (current) drug therapy; Z88.0 Allergy status to penicillin; Z88.1 Allergy status to other antibiotic agents; Z88.8 Allergy status to other drugs, medicaments and biological substances

== ENCOUNTER → 2022-01-13 | Outpatient (REF) | payer MEDICARE ==
[2022-01-13 17:32] LABS: ALBUMIN 3.8 GM/DL (3.2-5.2); BILIRUBIN,DIRECT 0.1 MG/DL (0.0-0.2); BILIRUBIN,TOTAL 0.4 MG/DL (0.2-1.0); TOTAL PROTEIN 7.1 GM/DL (6.4-8.2)
== END ==
LOC: M LABWUC 16:08
PROVIDERS: ATTEND Internal Medicine Gastroenterology
DX: R94.5 Abnormal results of liver function studies (principal)

== ENCOUNTER 2022-06-09 18:26 | Inpatient (IN) | payer MEDICARE ==
[~2022-06-09] VITALS: Ht 162.6 cm; Wt 72.3 kg
[~2022-06-09 18:26] MED LIST changes: +ESTR62CR PV; -ESTR62CR VG
[2022-06-09 21:46] LABS: BASO % 0.3 % (0.0-1.0); EOS # 0.4 10^3/uL (0.0-0.5); EOS % 3.3 % (0.0-3.0); HEMATOCRIT 47.5 % (36.0-47.0); HEMOGLOBIN 15.2 g/dl (12.0-15.5); LYMPH # 1.7 10^3/uL (1.5-5.0); LYMPH % 14.6 % (24.0-44.0); MEAN CORPUSCULAR HEMOGLOBIN 27.4 pg (27.0-33.0); MEAN CORPUSCULAR VOLUME 85.7 fl (80.0-96.0); MONO # 1.1 10^3/uL (0.0-0.8); MONO % 9.3 % (2.0-8.0); NEUTROPHILS # 8.3 10^3/uL (1.5-8.5); NEUTROPHILS % 72.2 % (36.0-66.0); PLATELET COUNT, AUTOMATED 305 10^3/uL (150-450); RED BLOOD COUNT 5.54 10^6/uL (4.00-5.40); WHITE BLOOD COUNT 11.5 10^3/uL (4.0-10.0)
[2022-06-09 22:20] LABS: LIPASE 27 U/L (12-53)
[2022-06-09 22:22] LABS: ALKALINE PHOSPHATASE 168 U/L (46-116); ALT/SGPT 22 U/L (7.0-40); AST/SGOT < 8 U/L (<34); BILIRUBIN,DIRECT 0.2 MG/DL (<0.4); BILIRUBIN,TOTAL 0.6 MG/DL (0.3-1.2); BLOOD UREA NITROGEN 12 MG/DL (9-23); CALCIUM LEVEL 9.6 MG/DL (8.3-10.6); CARBON DIOXIDE LEVEL 27 MMOL/L (20-31); CHLORIDE LEVEL 107 MMOL/L (98-107); CREATININE FOR GFR 0.98 MG/DL (0.55-1.30); GLOMERULAR FILTRATION RATE 59.2 (>39); GLUCOSE, FASTING 108 MG/DL (74-106); POTASSIUM SERUM 4.5 MMOL/L (3.5-5.1); SODIUM LEVEL 138 MMOL/L (136-145); TOTAL PROTEIN 7.3 G/DL (5.7-8.2)
[2022-06-10] MEDS ORDERED: NS 1,000 ML IV ONE (02:30)
[2022-06-10] MEDS ORDERED: ISOVUE-370 76% 100ML VIAL As Ordered ONE (03:41)
[2022-06-10 04:47] LABS: RSV AMPLIFICATION NEGATIVE (NEGATIVE)
[2022-06-10] MEDS ORDERED: KETOROLAC 30 MG/ML 1ML VIAL IV PRN (05:30)
[2022-06-10] MEDS ORDERED: ACETAMINOPHEN TAB 650MG DOSE (2X325MG) PO PRN (05:30)
[2022-06-10] MEDS ORDERED: ONDANSETRON 4MG ORAL DISINTEGRATING TAB PO PRN (05:30)
[2022-06-10] MEDS: LR 1,000 ML IV SCH ×2 (05:51→13:23)
[2022-06-10] MEDS ORDERED: ALBU8.5H INH (05:58)
[2022-06-10] MEDS ORDERED: PANT20TA6 PO (05:58)
[2022-06-10] MEDS ORDERED: HOME MED LIST COMPLETE! XX SCH (06:00)
[2022-06-10] MEDS ORDERED: ENOXAPARIN 40MG/0.4ML SYRINGE (J1650 PER 10MG) SC SCH (09:00)
[2022-06-10] MEDS ORDERED: LOPE1CAP5 PO (11:10)
[2022-06-10 14:00] VITALS: BP 131/69
== END 2022-06-10 14:15 | disposition home or self-care (01) | DRG 392 ==
LOC: M ED 18:26 → M ED INP 18:27 → OBSVTOIN 06-10 05:26
PROVIDERS: ADMIT Family Medicine; ATTEND Family Medicine
DX: R19.7 Diarrhea, unspecified (principal); K21.9 Gastro-esophageal reflux disease without esophagitis; E11.9 Type 2 diabetes mellitus without complications; A08.4 Viral intestinal infection, unspecified; K58.0 Irritable bowel syndrome with diarrhea; E86.0 Dehydration; E78.5 Hyperlipidemia, unspecified; J45.909 Unspecified asthma, uncomplicated; K75.81 Nonalcoholic steatohepatitis (NASH); Z90.49 Acquired absence of other specified parts of digestive tract; Z90.79 Acquired absence of other genital organ(s); Z20.822 Contact with and (suspected) exposure to COVID-19; Z79.899 Other long term (current) drug therapy; Z88.0 Allergy status to penicillin; Z88.1 Allergy status to other antibiotic agents; Z88.8 Allergy status to other drugs, medicaments and biological substances

== ENCOUNTER → 2024-03-08 | Outpatient (REF) | payer MEDICARE ==
[~2024-03-08] MED LIST changes: +ALBU8.5H INH; +LOPE1CAP5 PO; +LORA-1041 PO; -LORA-674 PO; +PANT20TA6 PO
== END ==
LOC: M SFHCDERM 07:51
PROVIDERS: ATTEND Nurse Practitioner Family
DX: L85.9 Epidermal thickening, unspecified (principal)

== ENCOUNTER → 2024-04-24 | Outpatient (REF) | LOC: M EMP 12:11 | PROVIDERS: ATTEND Family Medicine | DX: Z11.52 Encounter for screening for COVID-19 (principal) ==

== ENCOUNTER → 2024-09-14 | Outpatient (CLI) | payer MEDICARE | LOC: M SOG 06:54 | PROVIDERS: ATTEND Neuromusculoskeletal Medicine, Sports Medicine | DX: M25.562 Pain in left knee (principal) ==

== ENCOUNTER → 2024-11-09 | Outpatient (REF) | payer MEDICARE ==
[2024-11-14 01:13] LABS: BORRELIA SPECIES DNA NOT DETECTED (NOT DETECT)
== END ==
LOC: M LAB REF 12:39
PROVIDERS: ATTEND Family Medicine
DX: R53.83 Other fatigue (principal)

== ENCOUNTER 2025-03-07 03:38 | Emergency (ER) | payer MEDICARE ==
[~2025-03-07] VITALS: Ht 162.6 cm; Wt 72.7 kg
[2025-03-07 04:23] LABS: BASO # 0.1 10^3/uL (0.0-0.2); BASO % 0.9 % (0.0-1.0); EOS # 0.2 10^3/uL (0.0-0.5); EOS % 3.2 % (0.0-3.0); LYMPH # 2.1 10^3/uL (1.5-5.0); LYMPH % 27.7 % (24.0-44.0); MONO # 0.9 10^3/uL (0.0-0.8); MONO % 12.3 % (2.0-8.0); NEUTROPHILS # 4.2 10^3/uL (1.5-8.5); NEUTROPHILS % 55.8 % (36.0-66.0); PLATELET COUNT, AUTOMATED 272 10^3/uL (150-450)
[2025-03-07 04:41] LABS: CALCIUM LEVEL 9.0 MG/DL (8.3-10.6); CARBON DIOXIDE LEVEL 28.0 MMOL/L (20-31); CHLORIDE LEVEL 103.0 MMOL/L (98-107); CK-MB VALUE MASS 1.2 NG/ML (<3.6); CREATININE FOR GFR 0.99 MG/DL (0.55-1.30); GLOMERULAR FILTRATION RATE 59.1 (>39); POTASSIUM SERUM 4.1 MMOL/L (3.5-5.1); SODIUM LEVEL 140.0 MMOL/L (136-145)
[2025-03-07 04:46] LABS: CPK CREATINE PHOSPHOKINASE 46.0 U/L (34-145); MB/CK RELATIVE INDEX 2.6 (< OR =4)
[2025-03-07] MEDS: KETOROLAC 60 MG/2 ML VIAL IM ONE (05:37)
[2025-03-07 06:17] LABS: CK-MB VALUE MASS 1.0 NG/ML (<3.6)
[2025-03-07 06:19] LABS: CPK CREATINE PHOSPHOKINASE 42.0 U/L (34-145); MB/CK RELATIVE INDEX 2.38 (< OR =4)
[2025-03-07 06:45] VITALS: BP 106/63; TEMP 97.4; O2SAT 98
== END 2025-03-07 06:47 | disposition home or self-care (01) ==
LOC: M ED 03:38
DX: R07.9 Chest pain, unspecified (principal); R00.0 Tachycardia, unspecified; K21.9 Gastro-esophageal reflux disease without esophagitis; E78.5 Hyperlipidemia, unspecified; J45.909 Unspecified asthma, uncomplicated; Z88.0 Allergy status to penicillin; Z88.8 Allergy status to other drugs, medicaments and biological substances; Z79.02 Long term (current) use of antithrombotics/antiplatelets; Z79.52 Long term (current) use of systemic steroids; Z79.899 Other long term (current) drug therapy
CPT/HCPCS: 71045; 80048; 82550; 82553; 84484; 85025; 85379; 93005; 96372; 99284; J1885